=== PATIENT | male | born 1965 | race African-American/Black ===

== ENCOUNTER 2019-12-21 18:44 | Inpatient (IN) | payer BC, MEDICARE ==
[~2019-12-21] VITALS: Ht 188 cm; Wt 126.6 kg
[2019-12-21] MEDS ORDERED: ASPIRIN 81MG TABLET PO ONE (19:45)
[2019-12-21 20:26] LABS: CHLORIDE 104 mEq/L (98-107)
[2019-12-21 20:27] LABS: EOSINOPHILS % 3.6 % (0.0-5.0); HEMATOCRIT. 42.1 % (42.0-52.0); HEMOGLOBIN. 14.1 g/dL (14.0-18.0); LYMPHOCYTES % 37.5 % (20.0-50.0); MEAN CORPUSCULAR HEMOGLOBIN 28.5 pg (28.0-32.0); MEAN CORPUSCULAR VOLUME 85.3 fL (80.0-94.0); MEAN PLATELET VOLUME 8.2 fl (7.4-10.4); MONOCYTES % 7.6 % (2.0-8.0); NEUTROPHILS % 50.3 % (40.0-76.0); PLATELET 148 x1000/uL (130-400); RED BLOOD CELL COUNT 4.93 mill/uL (4.7-6.1); RED CELL DISTRIBUTION WIDTH 13.7 % (11.6-14.6)
[2019-12-21 20:29] LABS: PARTIAL THROMBOPLASTIN TIME 27.3 sec (23.4-31.0); PROTHROMBIN TIME 10.9 sec (9.6-11.0)
[2019-12-21] MEDS ORDERED: LORAZEPAM 2MG/ML CPJ IV PRN (23:00)
[2019-12-21] MEDS ORDERED: ONDANSETRON HCL 4MG/2ML INJ IV PRN (23:00)
[2019-12-21] MEDS ORDERED: ACETAMINOPHEN 325MG TABLET PO PRN (23:00)
[2019-12-21] MEDS ORDERED: MORPHINE SULFATE 2 MG/ML CPJ (NOT FOR IM USE) IV PRN (23:00)
[2019-12-21] MEDS ORDERED: HYDROCODONE/ACETAMINOPHEN 5/325MG TABLET PO PRN (23:00)
[2019-12-21] MEDS: ENOXAPARIN 30MG/0.3ML SYR SUBCUT SCH (23:30)
[2019-12-22] VITALS (7 sets, daily range): BP systolic 129–151; BP diastolic 81–94
[2019-12-22] MEDS ORDERED: ASCO125T PO (02:57)
[2019-12-22] MEDS ORDERED: B1/B1TAB5 MT (02:58)
[2019-12-22] MEDS ORDERED: ZINC50TA69 MT (02:58)
[2019-12-22 07:18] LABS: BASOPHILS % 0.4 % (0.0-2.0); EOSINOPHILS % 1.6 % (0.0-5.0); HEMATOCRIT. 40.8 % (42.0-52.0); HEMOGLOBIN. 13.6 g/dL (14.0-18.0); LYMPHOCYTES % 34.1 % (20.0-50.0); MEAN CORPUSCULAR HEMOGLOBIN 28.5 pg (28.0-32.0); MEAN CORPUSCULAR VOLUME 85.6 fL (80.0-94.0); MEAN PLATELET VOLUME 8.4 fl (7.4-10.4); MONOCYTES % 7.2 % (2.0-8.0); NEUTROPHILS % 56.7 % (40.0-76.0); PLATELET 154 x1000/uL (130-400); RED BLOOD CELL COUNT 4.77 mill/uL (4.7-6.1); RED CELL DISTRIBUTION WIDTH 13.6 % (11.6-14.6)
[2019-12-22 07:36] LABS: CHLORIDE 105 mEq/L (98-107)
[2019-12-22 07:47] LABS: PHOSPHORUS 3.2 mg/dL (2.5-4.9)
[2019-12-22 07:48] LABS: CREATINE KINASE 626 IU/L (39-308)
[2019-12-22] MEDS: ENOXAPARIN 30MG/0.3ML SYR SUBCUT SCH ×2 (08:44→08:46)
[2019-12-22] MEDS ORDERED: AMLODIPINE 2.5MG TABLET PO SCH (12:00)
[2019-12-22] MEDS ORDERED: ENOXAPARIN 100MG/ML SYR SUBCUT NR ×2 (12:34→22:00)
[2019-12-22] MEDS ORDERED: HYDRALAZINE 20MG/ML VIAL IV PRN (14:00)
[2019-12-22] MEDS ORDERED: DEXT 5%/0.45% NACL 1000ML 1,000 ML IV SCH (14:00)
[2019-12-22] MEDS ORDERED: FAMOTIDINE 20MG/2ML VIAL IV SCH (15:00)
[2019-12-22 17:52] LABS: CREATINE KINASE MB FRACTION 28.8 ng/mL (0.5-3.6)
[2019-12-23] MEDS ORDERED: ASPIRIN 81MG TABLET PO SCH (09:00)
[2019-12-23] MEDS ORDERED: SODIUM CHLORIDE 0.45% 1,000 ML IV SCH (09:00)
== END 2019-12-22 20:50 | disposition short-term general hospital (02) | DRG 282 ==
LOC: ER 18:44 → 7WST 22:40 → EDBEDREQ 22:44 → EDBEDREQTM 22:44 → ENRESERV 23:26
PROVIDERS: ADMIT Internal Medicine; ATTEND Internal Medicine
DX: I21.4 Non-ST elevation (NSTEMI) myocardial infarction (principal); I10 Essential (primary) hypertension; E78.5 Hyperlipidemia, unspecified; Z82.49 Family history of ischemic heart disease and other diseases of the circulatory system; Z90.49 Acquired absence of other specified parts of digestive tract; Z79.899 Other long term (current) drug therapy; Z80.8 Family history of malignant neoplasm of other organs or systems; Z20.828 Contact with and (suspected) exposure to other viral communicable diseases
CPT/HCPCS: 36415; 71045; 80048; 80053; 82550; 82553; 83735; 83880; 84100; 84484; 85025; 93005; 99291; J1650; J3490; U0003-CS